=== PATIENT | female | born 1985 | race Caucasian/White ===

== ENCOUNTER 2019-04-11 12:04 | Emergency (ER) | payer SELFPAY ==
[~2019-04-11] VITALS: Ht 154.9 cm; Wt 79.8 kg
[2019-04-11] MEDS ORDERED: IBUPROFEN 600 MG TAB PO STA (12:59)
[2019-04-11] MEDS ORDERED: TETANUS/DIPHTHERIA TOX ADULT 0.5 ML SYR IM ONE (13:15)
[2019-04-11] MEDS ORDERED: BACTRIM DS TAB1 EACH PO (15:20)
--- NOTE | 2019-04-11 15:38 | Diagnostic Imaging Report ---
EXAM: ANKLE 3+ VIEWS LEFT, FOOT LEFT COMPLETE, KNEE LEFT THREE VIEWS DATE: 04/11/2019 12:59 PM INDICATION: ^trauma ^[id number] ^1400 COMPARISON: None FINDINGS: Left ankle: 3 views of the left ankle show no displaced fracture or dislocation. The ankle mortise is symmetrically marginated. Soft tissues unremarkable. Left foot: 3 views of the left foot show no displaced fracture or dislocation. There is a 5 mm radiopaque density in the soft tissues beneath the calcaneus which may represent foreign matter in soft tissues or on the skin. Left knee: 3 views of the left knee show no displaced fracture or dislocation. Joint spaces are maintained. Soft tissues unremarkable. IMPRESSION: No acute bony abnormality. Small radiopaque density inferior to the calcaneus may be foreign matter in the soft tissue or on the skin. Correlation with clinical findings needed. Signed by: Dr. Kojo Jose M.D. on 04/11/2019 3:35 PM
--- NOTE | 2019-04-11 15:38 | Diagnostic Imaging Report ---
EXAM: ANKLE 3+ VIEWS LEFT, FOOT LEFT COMPLETE, KNEE LEFT THREE VIEWS DATE: 04/11/2019 12:59 PM INDICATION: ^trauma ^[id number] ^1400 COMPARISON: None FINDINGS: Left ankle: 3 views of the left ankle show no displaced fracture or dislocation. The ankle mortise is symmetrically marginated. Soft tissues unremarkable. Left foot: 3 views of the left foot show no displaced fracture or dislocation. There is a 5 mm radiopaque density in the soft tissues beneath the calcaneus which may represent foreign matter in soft tissues or on the skin. Left knee: 3 views of the left knee show no displaced fracture or dislocation. Joint spaces are maintained. Soft tissues unremarkable. IMPRESSION: No acute bony abnormality. Small radiopaque density inferior to the calcaneus may be foreign matter in the soft tissue or on the skin. Correlation with clinical findings needed. Signed by: Dr. Kojo Jose M.D. on 04/11/2019 3:35 PM
--- NOTE | 2019-04-11 15:38 | Diagnostic Imaging Report ---
EXAM: ANKLE 3+ VIEWS LEFT, FOOT LEFT COMPLETE, KNEE LEFT THREE VIEWS DATE: 04/11/2019 12:59 PM INDICATION: ^trauma ^[id number] ^1400 COMPARISON: None FINDINGS: Left ankle: 3 views of the left ankle show no displaced fracture or dislocation. The ankle mortise is symmetrically marginated. Soft tissues unremarkable. Left foot: 3 views of the left foot show no displaced fracture or dislocation. There is a 5 mm radiopaque density in the soft tissues beneath the calcaneus which may represent foreign matter in soft tissues or on the skin. Left knee: 3 views of the left knee show no displaced fracture or dislocation. Joint spaces are maintained. Soft tissues unremarkable. IMPRESSION: No acute bony abnormality. Small radiopaque density inferior to the calcaneus may be foreign matter in the soft tissue or on the skin. Correlation with clinical findings needed. Signed by: Dr. Kojo Jose M.D. on 04/11/2019 3:35 PM
[2019-04-11 16:12] VITALS: BP 104/73
== END 2019-04-11 16:14 | disposition home or self-care (01) ==
LOC: ER 12:04
DX: S30.811A Abrasion of abdominal wall, initial encounter (principal); S50.812A Abrasion of left forearm, initial encounter; M25.562 Pain in left knee; Y93.89 Activity, other specified; Y92.410 Unspecified street and highway as the place of occurrence of the external cause; M25.572 Pain in left ankle and joints of left foot; E66.9 Obesity, unspecified; Z68.33 Body mass index [BMI] 33.0-33.9, adult; Z82.49 Family history of ischemic heart disease and other diseases of the circulatory system; V23.0XXA Motorcycle driver injured in collision with car, pick-up truck or van in nontraffic accident, initial encounter
CPT/HCPCS: 90714; 99283